=== PATIENT | male | born 1955 | race Caucasian/White ===

== ENCOUNTER 2017-07-03 09:14 | Emergency (ER) | payer OTHER ==
[2017-07-03 09:24] VITALS: BP 153/108; PULSE 100; RESP 16; TEMP 98.4; O2SAT 96
--- NOTE | 2017-07-03 09:35 | EDPHY ---
H & P Stated Complaint: R UPPER BACK PAIN Time Seen by Provider: 07/03/17 09:35 Source: Patient Exam Limitations: No limitations - Personal History Current Tetanus/Diphtheria Vaccine: Unsure - Medical/Surgical History Hx Asthma: No Hx Chronic Respiratory Disease: No Hx Diabetes: No Hx Cardiac Disease: No Hx Renal Disease: No Hx Cirrhosis: No Hx Alcoholism: No Hx HIV/AIDS: No Hx Splenectomy or Spleen Trauma: No - Social History Smoking Status: Never smoked Constitutional: Initial Vital Signs Temperature (C) 36.9 C 07/03/17 09:23 Heart Rate 100 07/03/17 09:23 Respiratory Rate 16 07/03/17 09:23 Blood Pressure 153/108 H 07/03/17 09:23 O2 Sat (%) 96 07/03/17 09:23 O2 Delivery Mode Room Air Allergies/Adverse Reactions: No Known Allergies Allergy (Unverified 07/03/17 10:31) Home Medications: Medication Instructions Recorded Ibuprofen [Motrin] 800 mg PO Q8 #20 tab 07/03/17 oxyCODONE IR [Oxycodone Ir (*)] 5 - 10 mg PO Q6 PRN #20 tab 07/03/17 Medical Decision Making - Diagnostics Imaging Results: Imaging Impressions Ribs w/Chest X-Ray 07/03/17 09:53 Impression: 1. Nondisplaced posterior right 10th and 11th rib fractures. 2. No pneumothorax or effusion. Imaging: Discussed imaging studies w/ space operations Radiologist ED Course/Re-evaluation: CHIEF COMPLAINT: Back pain. HISTORY OF PRESENT ILLNESS: The patient is a 62-year-old male presenting with right flank pain that developed after a mechanical fall 3 days ago. The patient slipped on the wet floor at his gym and fell backwards on a rail. 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 His pain has not improved. He is having difficulty moving as his pain increases with movement. The patient is concerned about possible rib fracture. He denies spinal tenderness. REVIEW OF SYSTEMS: A 10 point review of systems was performed and is negative with the exception of the elements mentioned in the history of present illness. PHYSICAL EXAM: HR, BP, O2 Sat, RR. Temp noted General Appearance: Alert, well hydrated, appropriate, and non-toxic appearing. Head: Atraumatic without scalp tenderness or obvious injury Neck: Supple, 2+ carotid upstroke, nontender, no lymphadenopathy. Respiratory: No retractions, no distress, no wheezes, and no accessory muscle use. Lungs are clear to auscultation bilaterally. Cardiovascular: Regular rate and rhythm, no murmurs, rubs, or gallops. Bilateral carotid, radial, dorsalis pedis, and posterior tibial pulses intact. Good capillary refill all extremities. Gastrointestinal: Abdomen is soft, nontender, non-distended, no masses, no rebound, no guarding, no peritoneal signs. Musculoskeletal: Normal active ROM of all extremities, atraumatic. Back: No CTLS tenderness. Right rib tenderness. Neurological: Alert, appropriate, and interactive. The patient has normal DTRs and non-focal cranial nerves, motor, sensory, and cerebellar exam. Skin: No rashes, good turgor, no nodules on palpation. Past medical history: Denies. Past surgical history: Denies. Family history: Noncontributory. Social history: Works as chiropractor. . DIAGNOSTICS/PROCEDURES/CRITICAL CARE TIME: X-ray shows right posterior 10th-11th rib fractures. No pneumothorax or effusion. DIFFERENTIAL DIAGNOSIS: The differential diagnosis for the patient's back pain included but was not limited to musculo-skeletal pain, epidural abscess, herniated disk, spinal fracture, and intra-abdominal causes including urinary system. MEDICAL DECISION MAKING: The patient presents with right rib pain after a mechanical fall 3 days ago. The patient slipped at the gym and fell backwards and hit his right flank. He has tenderness over right ribs, no CTLS tenderness. I ordered back x-ray to look for rib fracture. X-ray shows right posterior 10-11th rib fractures. No evidence of pneumothorax or effusion. Plan to discharge the patient home with Oxycodone for severe pain. - Data Points Medications Given: Discontinued Medications Oxycodone/Acetaminophen (Percocet 5/325) 2 tab PO EDNOW ONE Stop: 07/03/17 10:01 Last Admin: 07/03/17 10:03 Dose: 2 tab Departure - Departure Disposition: Home, Routine, Self-Care Clinical Impression: Rib fractures Qualifiers: Encounter type: initial encounter Rib fracture type: multiple ribs Fracture type: closed Laterality: right Qualified Code(s): S22.41XA - Multiple fractures of ribs, right side, initial encounter for closed fracture Condition: Good Instructions: Rib Fracture (ED) Additional Instructions: Your x-ray shows rib fractures to the 10th and 11th ribs. I recommend 600mg Ibuprofen every 6-8 hours as need for pain. Take Oxycodone as directed for severe pain. You have been referred to the [facility] Orthopedic surgeon below, follow up as needed. I recommend light activity. Return to the Emergency Department if you develop chest pain or shortness of breath. Referrals: Aren Aaron MD [Medical Doctor] - As per Instructions (Orhtopedic surgery) Prescriptions: Ibuprofen [Motrin] 800 mg PO Q8 #20 tab oxyCODONE IR [Oxycodone Ir (*)] 5 - 10 mg PO Q6 PRN #20 tab PRN Reason: Pain, Severe Report Scribed for: Kenny Orona Report Scribed by: Melissa Dixon Date of Report: 07/03/17 Time of Report: 09:59
[2017-07-03] MEDS ORDERED: OXYCODONE/APAP 5/325 TAB PO ONE (10:00)
== END 2017-07-03 10:44 | disposition home or self-care (01) ==
DX: S22.41XA Multiple fractures of ribs, right side, initial encounter for closed fracture (principal); W01.0XXA Fall on same level from slipping, tripping and stumbling without subsequent striking against object, initial encounter